=== PATIENT | female | born 1995 | race Two or more races ===

== ENCOUNTER 2018-03-22 16:59 | Emergency (ER) | payer OTHER ==
[2018-03-22 17:09] VITALS: BP 117/62
[2018-03-22] MEDS ORDERED: ONDANSETRON 4 MG TAB.RAPDIS PO ONE (17:40)
--- NOTE | 2018-03-22 17:41 | ER Document Report ---
ED Medical Screen (RME) - General Chief Complaint: Vag Bleeding, +preg <12wks Stated Complaint: CRAMPS RELATED TO Time Seen by Provider: 03/22/18 17:39 Notes: 22 years old female first possibly about 6 weeks presents today with diffuse abdominal pain. Going on for the last 2-3 days. She has been having nausea for the last 2 weeks. Denies any vaginal bleeding, but has whitish discharges. Denies any fever chills or other constitutional symptoms On examination-abdomen is diffusely tender, positive bowel sounds TRAVEL OUTSIDE OF THE [place] IN LAST 30 DAYS: No - Related Data Allergies/Adverse Reactions: No Known Allergies Allergy (Unverified 03/22/18 17:04) Past Medical History Neurological Medical History: Reports: Hx Seizures Renal/ Medical History: Denies: Hx Peritoneal Dialysis Past Surgical History: Reports: Hx Cholecystectomy Physical Exam - Vital signs Vitals: Temp Pulse Resp BP Pulse Ox 98.7 F 64 18 117/62 98 03/22/18 17:07 03/22/18 17:07 03/22/18 17:07 03/22/18 17:07 03/22/18 17:07 Course - Vital Signs Vital signs: Temp Pulse Resp BP Pulse Ox 98.7 F 64 18 117/62 98 03/22/18 17:07 03/22/18 17:07 03/22/18 17:07 03/22/18 17:07 03/22/18 17:07
--- NOTE | 2018-03-22 18:31 | RADIOLOGY REPORT (SQ) ---
EXAM DESCRIPTION: U/S 1TRIMESTER/1GEST W/DOPPLER COMPLETED DATE/TIME: 03/22/2018 6:14 pm REASON FOR STUDY: and abdominal pain COMPARISON: None. TECHNIQUE: Transvaginal static and realtime grayscale images acquired of the pelvis. Additional frannie cted spectral and color Doppler images recorded. All images stored on PACs. bHCG: Pending. CLINICAL DATES: LMP 01/14/2018. 9 weeks 4 days. LIMITATIONS: None. FINDINGS: FETUS: Single Living intrauterine . ULTRASOUND EGA: 8 weeks 5 days. ULTRASOUND CRIS: 10/27/2018 EFW: Not applicable less than 20 weeks. CRL: 2.1 cm. FHR: 178 beats per minute. SURVEY: Too early to assess. AMNIOTIC FLUID: Adequate amount. PLACENTA: Not yet developed due to early gestation. SUBCHORIONIC BLEED: No SIZE OF BLEED: Not applicable. UTERUS: No masses or anomalies. 8.7 x 6.9 x 7.4 cm. CERVICAL LENGTH: 2.2 cm. Closed. RIGHT ADNEXA: Ovary not seen. No adnexal free fluid. No adnexal masses. LEFT ADNEXA: Ovary not seen. No adnexal free fluid. No adnexal masses. FREE FLUID: None. OTHER: No other significant finding. IMPRESSION: LIVING INTRAUTERINE . EGA 8 weeks 5 days. Trimester of : First - 0 to 13 weeks. TECHNICAL DOCUMENTATION: JOB ID: [id number] [employer]- All Rights Reserved rev Reading location - IP/workstation name: [email or web address]
[2018-03-22 18:33] LABS: ABSOLUTE EOSINOPHILS # (AUTO) 0.1 10^3/uL (0.0-0.6); ABSOLUTE MONOCYTES (AUTO) 0.5 10^3/uL (0.1-1.4); ABSOLUTE NEUT (AUTO) 5.6 10^3/uL (1.7-8.2); BASOPHILS % (AUTO) 0.4 % (0-2); EOSINOPHILS % (AUTO) 1.6 % (0-6); HEMATOCRIT 37.4 % (36.0-47.0); HEMOGLOBIN 13.1 g/dL (12.0-15.5); LYMPHOCYTES % (AUTO) 31.9 % (13-45); MEAN CORPUSCULAR HEMOGLOBIN 29.9 pg (27.0-33.4); MEAN CORPUSCULAR VOLUME 85 fl (80-97); MONOCYTES % (AUTO) 5.9 % (3-13); PLATELET COUNT 250 10^3/uL (150-450); RED BLOOD COUNT 4.38 10^6/uL (3.72-5.28); RED CELL DISTRIBUTION WIDTH 14.4 % (11.5-14.0); SEGMENTED NEUTROPHILS % (AUTO) 60.2 % (42-78); TOTAL CELLS COUNTED % (AUTO) 100 %; WHITE BLOOD COUNT 9.3 10^3/uL (4.0-10.5)
[2018-03-22] MEDS ORDERED: ACETAMINOPHEN 325 MG TABLET PO ONE (18:38)
--- NOTE | 2018-03-22 18:40 | ER Document Report ---
ED GI/ - General Chief Complaint: Vag Bleeding, +preg <12wks Stated Complaint: CRAMPS RELATED TO Time Seen by Provider: 03/22/18 17:39 Mode of Arrival: Ambulatory Information source: Patient Notes: Patient presents complaining of intermittent abdominal cramping off and on for the past 3 weeks. Patient does report occasional nausea over the past 2 weeks. Patient presents today complaining of vaginal discharge. Patient is currently 6 weeks . Patient has not had any care with this . Patient denies any urinary symptoms or vaginal bleeding. TRAVEL OUTSIDE OF THE [place] IN LAST 30 DAYS: No - HPI Patient complains to provider of: Abdominal pain, , Vaginal discharge, Vomiting. No: Diarrhea, Dysuria Onset: Other - 3 weeks Timing/Duration: Waxing and waning Pain Level: 2 Context: Location: Other Vaginal bleeding (Compared to normal period): None Menstrual period history: Sexual history: Active Associated symptoms: Nausea, Vaginal discharge, Vomiting. denies: Dysuria, Fever, Loss of appetite, Urinary hesitancy, Urinary frequency, Urinary urgency Exacerbated by: Denies Relieved by: Denies Similar symptoms previously: No Recently seen / treated by doctor: No - Related Data Allergies/Adverse Reactions: No Known Allergies Allergy (Unverified 03/22/18 17:04) Past Medical History - General Information source: Patient - Social History Smoking Status: Never Smoker Frequency of alcohol use: None Drug Abuse: None Occupation: None Lives with: Family Family History: Reviewed & Not Pertinent Patient has suicidal ideation: No Patient has homicidal ideation: No Neurological Medical History: Reports: Hx Seizures Renal/ Medical History: Denies: Hx Peritoneal Dialysis Past Surgical History: Reports: Hx Cholecystectomy Review of Systems - Review of Systems Constitutional: No symptoms reported. denies: Fever, Recent illness EENT: No symptoms reported Cardiovascular: No symptoms reported. denies: Chest pain Respiratory: No symptoms reported. denies: Cough, Short of breath Gastrointestinal: Abdominal pain, Nausea, Vomiting. denies: Diarrhea, Constipation Genitourinary: No symptoms reported. denies: Flank pain Female Genitourinary: , Vaginal discharge. denies: Vaginal bleeding Musculoskeletal: No symptoms reported. denies: Back pain Skin: No symptoms reported Hematologic/Lymphatic: No symptoms reported Neurological/Psychological: No symptoms reported Physical Exam - Vital signs Vitals: Temp Pulse Resp BP Pulse Ox 98.7 F 64 18 117/62 98 03/22/18 17:07 03/22/18 17:07 03/22/18 17:07 03/22/18 17:07 03/22/18 17:07 - General General appearance: Appears well, Alert In distress: None - HEENT Head: Normocephalic, Atraumatic Eyes: Normal Conjunctiva: Normal Mouth/Lips: Normal Neck: Normal, Supple. No: Lymphadenopathy - Respiratory Respiratory status: No respiratory distress Chest status: Nontender Breath sounds: Normal. No: Rales, Rhonchi, Stridor, Wheezing Chest palpation: Normal - Cardiovascular Rhythm: Regular Heart sounds: S1 appreciated, S2 appreciated Murmur: No - Abdominal Inspection: Morbidly Obese Distension: No distension Bowel sounds: Normal Tenderness: Tender - diffuse Organomegaly: No organomegaly - Genitourinary External exam: Normal Speculum exam: Cervix closed, Vaginal discharge Vaginal bleeding: None Bimanuel exam: Normal - Back Back: Normal, Nontender. No: CVA tenderness - Extremities General upper extremity: Normal inspection, Normal ROM General lower extremity: Normal inspection, Normal ROM - Neurological Neuro grossly intact: Yes Cognition: Normal Amber Coma Scale Eye Opening: Spontaneous [place] Coma Scale Verbal: Oriented Amber Coma Scale Motor: Obeys Commands Amber Coma Scale Total: 15 - Psychological Associated symptoms: Normal affect, Normal mood - Skin Skin Temperature: Warm Skin Moisture: Dry Skin Color: Normal Course - Re-evaluation Re-evalutation: 03/22/18 21:51 Patient's abdomen soft, no guarding. Patient nontoxic in appearance patient advised of diagnostic test results. Patient encouraged to follow-up with a OB/ TUMBLER MACHINE OPERATOR HELPER to establish care. Patient will be treated for bacterial vaginosis as well as UTI and urine culture will be performed. Patient presents with abdominal pain without signs of peritonitis or other life-threatening or serious etiology. Patient appears stable for discharge and has been instructed to return immediately if the symptoms worsen in any way for reevaluation. The patient has been instructed to return if the symptoms worsen or change in any way. - Vital Signs Vital signs: Temp Pulse Resp BP Pulse Ox 98.7 F 64 18 117/62 98 03/22/18 17:07 03/22/18 17:07 03/22/18 17:07 03/22/18 17:07 03/22/18 17:07 - Laboratory Result Diagrams: 03/22/18 18:18 03/22/18 18:18 Laboratory results interpreted by me: 03/22/18 03/22/18 03/22/18 18:18 18:18 20:20 RDW 14.4 H Chloride 108 H Carbon Dioxide 20 L Urine Ketones 20 H Ur Leukocyte Esterase LARGE H Urine Ascorbic Acid 40 H 03/22/18 23:19 Labs- Entire Visit 03/22/18 03/22/18 03/22/18 18:18 18:18 18:40 WBC 9.3 RBC 4.38 Hgb 13.1 Hct 37.4 MCV 85 MCH 29.9 MCHC 35.0 RDW 14.4 H Plt Count 250 Seg Neutrophils % 60.2 Lymphocytes % 31.9 Monocytes % 5.9 Eosinophils % 1.6 Basophils % 0.4 Absolute Neutrophils 5.6 Absolute Lymphocytes 3.0 Absolute Monocytes 0.5 Absolute Eosinophils 0.1 Absolute Basophils 0.0 Sodium 139.3 Potassium 4.1 Chloride 108 H Carbon Dioxide 20 L Anion Gap 11 BUN 9 Creatinine 0.69 Est GFR ( Amer) > 60 Est GFR (Non-Af Amer) > 60 Glucose 99 Calcium 9.6 Total Bilirubin 0.4 Direct Bilirubin 0.2 Neonat Total Bilirubin Not Reportable Neonat Direct Bilirubin Not Reportable Neonat Indirect Bili Not Reportable AST 33 ALT 45 Alkaline Phosphatase 80 Total Protein 7.4 Albumin 4.3 Lipase 34.6 Urine Color Urine Appearance Urine pH Ur Specific [place] Urine Protein Urine Glucose (UA) Urine Ketones Urine Blood Urine Nitrite Urine Bilirubin Urine Urobilinogen Ur Leukocyte Esterase Urine WBC (Auto) Urine RBC (Auto) Urine Bacteria (Auto) Squamous Epi Cells Auto Urine Mucus (Auto) Urine Ascorbic Acid Epi Cells (Wet Prep) 3+ EPITHELIALS SEEN Trichomonas (Wet Prep) NO TRICHOMONAS SEEN Vaginal WBC 1+ WBCS SEEN Vaginal Yeast NO YEAST SEEN Chlamydia DNA (PCR) N.gonorrhoeae DNA (PCR) 03/22/18 03/22/18 18:40 20:20 WBC RBC Hgb Hct MCV MCH MCHC RDW Plt Count Seg Neutrophils % Lymphocytes % Monocytes % Eosinophils % Basophils % Absolute Neutrophils Absolute Lymphocytes Absolute Monocytes Absolute Eosinophils Absolute Basophils Sodium Potassium Chloride Carbon Dioxide Anion Gap BUN Creatinine Est GFR ( Amer) Est GFR (Non-Af Amer) Glucose Calcium Total Bilirubin Direct Bilirubin Neonat Total Bilirubin Neonat Direct Bilirubin Neonat Indirect Bili AST ALT Alkaline Phosphatase Total Protein Albumin Lipase Urine Color YELLOW Urine Appearance CLOUDY Urine pH 5.0 Ur Specific [place] 1.021 Urine Protein NEGATIVE Urine Glucose (UA) NEGATIVE Urine Ketones 20 H Urine Blood NEGATIVE Urine Nitrite NEGATIVE Urine Bilirubin NEGATIVE Urine Urobilinogen NEGATIVE Ur Leukocyte Esterase LARGE H Urine WBC (Auto) 33 Urine RBC (Auto) 2 Urine Bacteria (Auto) 1+ Squamous Epi Cells Auto 5 Urine Mucus (Auto) MOD Urine Ascorbic Acid 40 H Epi Cells (Wet Prep) Trichomonas (Wet Prep) Vaginal WBC Vaginal Yeast Chlamydia DNA (PCR) NOT DETECTED N.gonorrhoeae DNA (PCR) NOT DETECTED - Diagnostic Test Radiology reviewed: Reports reviewed Discharge - Discharge Clinical Impression: Bacterial vaginosis, Intrauterine UTI (urinary tract infection) Qualifiers: Urinary tract infection type: site unspecified Hematuria presence: without hematuria Qualified Code(s): N39.0 - Urinary tract infection, site not specified Condition: Stable Disposition: HOME, SELF-CARE Instructions: Abdominal Pain ([facility]), Cephalexin ([facility]), Metronidazole ([facility]), Urinary Tract Infection ([facility]), Vaginosis, Bacterial ([facility]) Additional Instructions: Return immediately for any new or worsening symptoms Followup with your primary care provider, call tomorrow to make a followup appointment Follow-up with a hunting and fishing guide to establish care Urine culture is pending, we will call if you need any different treatment Prescriptions: Cephalexin Monohydrate [Keflex 500 mg Capsule] 500 mg PO Q6H 5 Days capsule Metronidazole [Flagyl 500 mg Tablet] 500 mg PO BID #14 tablet [facility] [Provider [facility] - 03/25/18
[2018-03-22 18:53] LABS: EPITHELIALS (WET MOUNT) 3+ EPITHELIALS SEEN; T.VAGINALIS (WET MOUNT) NO TRICHOMONAS SEEN; WBCS (WET MOUNT) 1+ WBCS SEEN; YEAST (WET MOUNT) NO YEAST SEEN
[2018-03-22 18:57] LABS: ALANINE AMINOTRANSFERASE 45 U/L (9-52); ALBUMIN 4.3 g/dL (3.5-5.0); ALKALINE PHOSPHATASE 80 U/L (38-126); ANION GAP 11 (5-19); ASPARTATE AMINO TRANSFERASE 33 U/L (14-36); BILIRUBIN,DIRECT 0.2 mg/dL (0.0-0.4); BILIRUBIN,TOTAL 0.4 mg/dL (0.2-1.3); BLOOD UREA NITROGEN 9 mg/dL (7-20); CALCIUM 9.6 mg/dL (8.4-10.2); CARBON DIOXIDE 20 mmol/L (22-30); CHLORIDE 108 mmol/L (98-107); GLUCOSE 99 mg/dL (75-110); LIPASE 34.6 U/L (23-300); POTASSIUM 4.1 mmol/L (3.6-5.0); SODIUM 139.3 mmol/L (137-145); TOTAL PROTEIN 7.4 g/dL (6.3-8.2)
[2018-03-22 20:19] LABS: CHLAM PCR NOT DETECTED (NOT DETECT); GON PCR NOT DETECTED (NOT DETECT)
[2018-03-22 20:45] LABS: APPEARANCE,URINE CLOUDY; BILIRUBIN,URINE NEGATIVE (NEGATIVE); COLOR,URINE YELLOW; GLUCOSE, URINE NEGATIVE (NEGATIVE); KETONES,URINE 20 mg/dL (NEGATIVE); LEUKOCYTE ESTERASE,URINE LARGE (NEGATIVE); NITRITE,URINE NEGATIVE (NEGATIVE); PROTEIN,URINE NEGATIVE (NEGATIVE); URINE SPECIFIC GRAVITY 1.021; UROBILINOGEN,URINE NEGATIVE mg/dL (<2.0)
[2018-03-22] MEDS ORDERED: METRONIDAZOLE 500 MG TABLET PO ONE (21:48)
[2018-03-22] MEDS ORDERED: CEPHALEXIN 500 MG CAPSULE PO ONE (21:48)
== END 2018-03-22 22:34 | disposition home or self-care (01) ==
LOC: ER 16:59
DX: O23.591 Infection of other part of genital tract in pregnancy, first trimester (principal); B96.89 Other specified bacterial agents as the cause of diseases classified elsewhere; O23.41 Unspecified infection of urinary tract in pregnancy, first trimester; O21.9 Vomiting of pregnancy, unspecified; O26.891 Other specified pregnancy related conditions, first trimester; R10.9 Unspecified abdominal pain; Z3A.01 Less than 8 weeks gestation of pregnancy
CPT/HCPCS: 99284; 36415; 87086; 87210; 83690; 85025; 80053; 81001; 87491; 87591; 76801; 93976; S0119

== ENCOUNTER 2018-03-25 00:32 | Emergency (ER) | payer OTHER ==
[2018-03-25] MEDS ORDERED: ACETAMINOPHEN 325 MG TABLET PO ONE (01:21)
[2018-03-25] MEDS ORDERED: METOCLOPRAMIDE HCL 10 MG TABLET PO ONE (01:29)
--- NOTE | 2018-03-25 01:35 | ER Document Report ---
ED Seizure - General Chief Complaint: Probable Seizure Stated Complaint: POSSIBLE SEIZURE Time Seen by Provider: 03/25/18 01:20 Mode of Arrival: Wheelchair Information source: Patient, Relative Notes: Patient is a 22-year-old female comes emergency room complaining of having a seizure this evening. Patient states that she has type of aura that comes about her when she has a seizure during the day when she notices her left side feels really rundown and fatigued she knows she did have a seizure sometime in the next 24 hours. She got this feeling this morning and she had gone to bed tonight and states that he witnessed her going into the seizure that lasted for a few minutes not real prominent but a tonic-clonic presentation. She takes Topamax for her history of seizures and she did take her dose today. Patient also states that she was here 2 days ago diagnosed with a urinary tract infection given antibiotics which she is not sure of what the name was and was told by pharmacist that she should not take it if she was under 12 weeks and she is only 8 weeks according to her. She was going to come back to ask about another antibiotic. Patient also states that she has a history of migraines and after the seizure she currently has a migraine that is centered in the forehead. She denies any other medical problems at this time and she does not smoke drink or do drugs. TRAVEL OUTSIDE OF THE [place] IN LAST 30 DAYS: No - HPI Patient complains to provider of: History of seizures Number of episodes: 1 Quality of pain: Pressure, Throbbing Severity: Moderate Pain Level: 3 Continued on arrival to ED: No Can details of seizure be obtained/verified: Yes Episode witnessed (by whom): Yes - By Current seizure medications: Other - Topamax Preceding symptoms/context: Recent illness/fever. denies: Recent alcohol intake , Recent drug use, Sleep deprivation, Missed dose of meds, Somnolence History of: Migraines Character of seizure: Complete loss/conscious, Generalized shaking. No: Incontinent stool, Incontinent bladder, Stopped breathing Post-ictal symptoms: None Injuries: None - Related Data Allergies/Adverse Reactions: No Known Allergies Allergy (Unverified 03/22/18 17:04) Past Medical History - General Information source: Patient, Relative - Social History Smoking Status: Never Smoker Cigarette use (# per day): No Chew tobacco use (# tins/day): No Smoking Education Provided: No Frequency of alcohol use: None Drug Abuse: None Family History: Reviewed & Not Pertinent Neurological Medical History: Reports: Hx Seizures Renal/ Medical History: Denies: Hx Peritoneal Dialysis Past Surgical History: Reports: Hx Cholecystectomy Review of Systems - Review of Systems Constitutional: No symptoms reported EENT: No symptoms reported Cardiovascular: No symptoms reported Respiratory: No symptoms reported Gastrointestinal: No symptoms reported Genitourinary: No symptoms reported Female Genitourinary: No symptoms reported Musculoskeletal: No symptoms reported Skin: No symptoms reported Hematologic/Lymphatic: No symptoms reported Neurological/Psychological: Seizure, Lost consciousness -: Yes All other systems reviewed and negative Physical Exam - Vital signs Vitals: Temp Pulse Resp BP Pulse Ox 99.2 F 115 H 18 102/68 98 03/25/18 00:38 03/25/18 00:38 03/25/18 00:38 03/25/18 00:38 03/25/18 00:38 Interpretation: Tachycardic - General General appearance: Alert In distress: None - HEENT Head: Normocephalic, Atraumatic Eyes: Normal - Respiratory Respiratory status: No respiratory distress Chest status: Nontender Breath sounds: Normal Chest palpation: Normal - Cardiovascular Rhythm: Tachycardia Murmur: No - Neurological Neuro grossly intact: Yes Cognition: Normal Orientation: AAOx4 Amber Coma Scale Eye Opening: Spontaneous Amber Coma Scale Verbal: Oriented Amber Coma Scale Motor: Obeys Commands [place] Coma Scale Total: 15 Speech: Normal Course - Vital Signs Vital signs: Temp Pulse Resp BP Pulse Ox 99.2 F 115 H 18 102/68 98 03/25/18 00:38 03/25/18 00:38 03/25/18 00:38 03/25/18 00:38 03/25/18 00:38 Discharge - Discharge Clinical Impression: Seizure
[2018-03-25] MEDS ORDERED: LORAZEPAM 1 MG TABLET PO ONE (02:16)
--- NOTE | 2018-03-25 02:19 | ER Document Report ---
ED Seizure - General Chief Complaint: Probable Seizure Stated Complaint: POSSIBLE SEIZURE Time Seen by Provider: 03/25/18 01:20 Mode of Arrival: Wheelchair Information source: Patient - Related Data Allergies/Adverse Reactions: No Known Allergies Allergy (Unverified 03/22/18 17:04) Past Medical History - General Information source: Patient, Relative - Social History Smoking Status: Never Smoker Cigarette use (# per day): No Chew tobacco use (# tins/day): No Frequency of alcohol use: None Drug Abuse: None Family History: Reviewed & Not Pertinent Patient has suicidal ideation: No Patient has homicidal ideation: No Neurological Medical History: Reports: Hx Migraine, Hx Seizures Renal/ Medical History: Denies: Hx Peritoneal Dialysis Past Surgical History: Reports: Hx Cholecystectomy Physical Exam - Vital signs Vitals: Temp Pulse Resp BP Pulse Ox 99.2 F 115 H 18 102/68 98 03/25/18 00:38 03/25/18 00:38 03/25/18 00:38 03/25/18 00:38 03/25/18 00:38 Course - Vital Signs Vital signs: Temp Pulse Resp BP Pulse Ox 99.2 F 115 H 18 102/68 98 03/25/18 00:38 03/25/18 00:38 03/25/18 00:38 03/25/18 00:38 03/25/18 00:38 Discharge - Discharge Clinical Impression: Seizure Condition: Stable Disposition: HOME, SELF-CARE Additional Instructions: Topamax is known to be harmful to the fetus and early . You should stop taking that medication now. Your urine culture from 2 days ago did not grow a urinary pathogen, so you can stop taking the cephalexin and metronidazole. Follow-up with your primary provider at [facility] to discuss alternative management of your seizure disorder. RETURN TO THE EMERGENCY ROOM IF ANY NEW OR WORSENING SYMPTOMS.
[2018-03-25 02:52] VITALS: BP 102/54
== END 2018-03-25 02:51 | disposition home or self-care (01) ==
LOC: ER 00:32
DX: R56.9 Unspecified convulsions (principal); Z90.49 Acquired absence of other specified parts of digestive tract
CPT/HCPCS: 99285

== ENCOUNTER 2018-03-30 01:11 | Emergency (ER) | payer OTHER ==
[2018-03-30] MEDS ORDERED: HALOPERIDOL LACTATE INJ 5 MG/1 ML VIAL IM ONE (01:22)
[2018-03-30] MEDS ORDERED: HALOPERIDOL LACTATE INJ 5 MG/1 ML VIAL ONE (01:23)
[2018-03-30] MEDS ORDERED: MIDAZOLAM 2 MG/2 ML INJ IM ONE (01:23)
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
[2018-03-30 04:01] VITALS: BP 117/58
== END 2018-03-30 03:10 | disposition home or self-care (01) ==
LOC: ER 01:11
DX: O99.341 Other mental disorders complicating pregnancy, first trimester (principal); F41.1 Generalized anxiety disorder; Z3A.09 9 weeks gestation of pregnancy
CPT/HCPCS: 99283; 96372; J2250

== ENCOUNTER 2018-04-17 17:00 | Emergency (ER) | payer OTHER ==
[2018-04-17] MEDS ORDERED: LORAZEPAM INJ 2 MG/1 ML VIAL IV ONE (17:38)
[2018-04-17 17:42] LABS: ABSOLUTE EOSINOPHILS # (AUTO) 0.2 10^3/uL (0.0-0.6); ABSOLUTE MONOCYTES (AUTO) 1.1 10^3/uL (0.1-1.4); ABSOLUTE NEUT (AUTO) 8.5 10^3/uL (1.7-8.2); BASOPHILS % (AUTO) 0.3 % (0-2); EOSINOPHILS % (AUTO) 1.1 % (0-6); HEMATOCRIT 40.2 % (36.0-47.0); HEMOGLOBIN 13.5 g/dL (12.0-15.5); LYMPHOCYTES % (AUTO) 41.6 % (13-45); MEAN CORPUSCULAR HEMOGLOBIN 29.5 pg (27.0-33.4); MEAN CORPUSCULAR HGB CONC 33.5 g/dL (32.0-36.0); MEAN CORPUSCULAR VOLUME 88 fl (80-97); MONOCYTES % (AUTO) 6.8 % (3-13); PLATELET COUNT 303 10^3/uL (150-450); RED BLOOD COUNT 4.57 10^6/uL (3.72-5.28); RED CELL DISTRIBUTION WIDTH 14.3 % (11.5-14.0); SEGMENTED NEUTROPHILS % (AUTO) 50.2 % (42-78); TOTAL CELLS COUNTED % (AUTO) 100 %; WHITE BLOOD COUNT 16.9 10^3/uL (4.0-10.5)
[2018-04-17] MEDS ORDERED: TOPIRAMATE 100 MG TABLET PO ONE (17:59)
[2018-04-17 18:01] LABS: ALANINE AMINOTRANSFERASE 31 U/L (9-52); ALBUMIN 4.5 g/dL (3.5-5.0); ALKALINE PHOSPHATASE 87 U/L (38-126); ASPARTATE AMINO TRANSFERASE 32 U/L (14-36); BILIRUBIN,DIRECT 0.2 mg/dL (0.0-0.4); BILIRUBIN,TOTAL 0.3 mg/dL (0.2-1.3); BLOOD UREA NITROGEN 5 mg/dL (7-20); CALCIUM 10.5 mg/dL (8.4-10.2); GLUCOSE 110 mg/dL (75-110); POTASSIUM 4.9 mmol/L (3.6-5.0); TOTAL PROTEIN 7.8 g/dL (6.3-8.2)
[2018-04-17 18:10] LABS: CARBON DIOXIDE 13 mmol/L (22-30); CHLORIDE 110 mmol/L (98-107); SODIUM 146.9 mmol/L (137-145)
[2018-04-17 18:11] LABS: ANION GAP 24 (5-19)
[2018-04-17] MEDS ORDERED: ACETAMINOPHEN 325 MG TABLET PO ONE (18:13)
--- NOTE | 2018-04-17 18:56 | RADIOLOGY REPORT (SQ) ---
EXAM DESCRIPTION: CHEST SINGLE VIEW COMPLETED DATE/TIME: 04/17/2018 6:36 pm REASON FOR STUDY: Seizure, postictal, portable chest x-ray COMPARISON: None. EXAM PARAMETERS: NUMBER OF VIEWS: One view. TECHNIQUE: Single frontal radiographic view of the chest acquired. RADIATION DOSE: NA LIMITATIONS: None. FINDINGS: LUNGS AND PLEURA: Low lung volumes. No infiltrate or effusion. No mass. MEDIASTINUM AND HILAR STRUCTURES: No masses. Contour normal. HEART AND VASCULAR STRUCTURES: Heart normal in size. Normal vasculature. BONES: No acute findings. HARDWARE: None in the chest. OTHER: No other significant finding. IMPRESSION: NO ACUTE RADIOGRAPHIC FINDING IN THE CHEST. TECHNICAL DOCUMENTATION: JOB ID: [id number] [employer]- All Rights Reserved Reading location - IP/workstation name: [email or web address]
[2018-04-17] MEDS ORDERED: OXYCODONE-ACETAMINOPHEN 5-325 MG TABLET PO ONE (19:24)
--- NOTE | 2018-04-17 19:27 | ER Document Report ---
ED Seizure - General Chief Complaint: Probable Seizure Stated Complaint: HEAD PAIN Time Seen by Provider: 04/17/18 17:35 Notes: Patient brought in actively seizing. Patient has a history of seizure disorder for many years, of unknown cause. She is currently being treated with clonazepam 0.5 mg 3 times a day and a long-acting, extended release Topamax at bedtime. said he found her on the floor after having had a seizure this afternoon. She was able to function and walk after that occurred. She then had a second seizure for which he brought her to the emergency department. Has not been sick in any way recently. She is 12 weeks . No problems with the yet. Has been getting care and is on vitamins. Denies any vomiting or diarrhea. No fevers. Did apparently bite her tongue and 1 of the seizures today. No cough or congestion or difficulty breathing or shortness of breath. Patient's only complaint is a headache, similar to when she has had before after a seizure. No evidence that the patient has hit her head or had any trauma to her head today. No swelling of the extremities. Later in her visit, after the patient awakened from her postictal state, we are to find out that the patient says that she did not take but 1 of her clonazepam' s today and has not taken her extended release Topamax today. It is prescribed to be taken at bedtime. - Related Data Allergies/Adverse Reactions: No Known Allergies Allergy (Verified 04/17/18 17:01) Past Medical History - Social History Smoking Status: Never Smoker Frequency of alcohol use: None Drug Abuse: None Family History: Reviewed & Not Pertinent Patient has suicidal ideation: No Patient has homicidal ideation: No Neurological Medical History: Reports: Hx Migraine, Hx Seizures Psychiatric Medical History: Reports: Other - History of panic attacks Past Surgical History: Reports: Hx Cholecystectomy Review of Systems - Review of Systems Notes: REVIEW OF SYSTEMS: CONSTITUTIONAL : Denies fever. EENT: Says she bit her tongue, on both sides. But denies eye, ear, nose or mouth or throat pain or other symptoms. CARDIOVASCULAR: Denies chest pain. RESPIRATORY: Denies cough, chest congestion, or shortness of breath. GASTROINTESTINAL: Denies abdominal pain or nausea, vomiting, or diarrhea. GENITOURINARY: Denies difficulty or painful urinating, urinary frequency, blood in urine. MUSCULOSKELETAL: Denies back or neck pain. Denies joint pain or swelling. SKIN: Denies rash or skin lesions. NEUROLOGICAL: Complains of headache. Denies sensory loss or motor deficits. ALL OTHER SYSTEMS REVIEWED AND NEGATIVE. Physical Exam - Vital signs Vitals: Temp Pulse Resp BP Pulse Ox 98.5 F 99 20 116/55 L 97 04/17/18 17:04 04/17/18 17:04 04/17/18 17:04 04/17/18 17:04 04/17/18 17:04 Interpretation: Normal Notes: PHYSICAL EXAMINATION: GENERAL: Actively seizing when brought to the examining room in trauma 2. Completed her seizure and became postictal as we were getting her up on the stretcher. Unresponsive otherwise. Some blood coming from her mouth. No apparent incontinence. HEAD: Atraumatic, normocephalic. EYES: Pupils equal round and reactive to light, extraocular movements intact. ENT: oropharynx: Small macerated chewing injury to the lateral aspects of both sides of her tongue. No significant swelling in the middle of the tongue. No impingement upon the airway or ability to swallow. Moist mucous membranes. NECK: Normal range of motion, supple. LUNGS: Breath sounds clear and equal bilaterally. HEART: Regular rate and rhythm without murmurs. ABDOMEN: Soft, nontender. No guarding or rebound. No masses. BACK: No tenderness throughout entire back. EXTREMITIES: Normal range of motion without pain. NEUROLOGICAL: After she awakened, she exhibited normal speech, normal gait. Normal sensory, motor, and reflex exams. Awake, alert, and oriented x3. Complains of generalized global headache. SKIN: Warm, dry, no rashes. Course - Re-evaluation Re-evalutation: 04/17/18 19:42 We were able to learn from the patient that she has only taken 1 of her clonazepam's today and she is supposed to be taking 3 a day. Additionally, patient is on an extended release Topamax 100 mg that she supposed to take 1 at bedtime. She has not taken any today thus far. Do not know if she took any yesterday. She is trying to conserve medications because her pharmacy cannot get that medication for her without prior approval from the patient's physician. 04/17/18 19:43 Patient remained seizure free throughout the rest of her stay. She continued to complain of headache I gave her 975 mg of acetaminophen p.o. But she continued to complain of the headache, I gave her 1 Percocet at her time of discharge. Advised the patient to take her Topamax extended release pill when she gets home tonight also to take her clonazepam, third pill of the day, later tonight. - Vital Signs Vital signs: Temp Pulse Resp BP Pulse Ox 98.5 F 99 20 112/75 98 04/17/18 17:04 04/17/18 17:04 04/17/18 19:02 04/17/18 19:02 04/17/18 19:02 - Laboratory Result Diagrams: 04/17/18 17:23 04/17/18 17:23 Laboratory results interpreted by me: 04/17/18 04/17/18 17:23 17:23 WBC 16.9 H RDW 14.3 H Absolute Neutrophils 8.5 H Absolute Lymphocytes 7.0 H Sodium 146.9 H Chloride 110 H Carbon Dioxide 13 L Anion Gap 24 H BUN 5 L Calcium 10.5 H Discharge - Discharge Clinical Impression: Seizure, , History of seizures Condition: Stable Disposition: HOME, SELF-CARE Additional Instructions: Seizure, Known Epileptic You have had a seizure. Seizures may "break through" in an epileptic due to stress of infection or injury, a change in blood chemistry, or drug and alcohol use. Another common cause is failure to take medication as prescribed. Your doctor has evaluated your situation for the likely cause of this seizure. It is important that you follow his advice concerning any medication changes and follow-up care. Further testing of anti-seizure medication levels in your blood may be necessary. 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 This seizure must be reported to the regional [employer] driver 's license bureau. Call the doctor or return if seizures recur, or if new or unusual symptoms arise -- such as severe headache, confusion, excessive sleepiness, local weakness or numbness, neck stiffness, or fever. Take both of your medications as prescribed. Do not miss a single dose. Follow-up with your neurologist tomorrow morning. Return if you have new or different or worsening symptoms or you have another seizure. FOLLOW-UP CARE: If you have been referred to a physician for follow-up care, call the physician s office for an appointment as you were instructed or within the next two days. If you experience worsening or a significant change in your symptoms, notify the physician immediately or return to the Emergency Department at any time for re-evaluation. Referrals: HAYDEN KHAN FNP-C [Primary Care Provider] - Follow up as needed
[2018-04-17 20:26] VITALS: BP 115/67
--- NOTE | 2018-04-18 08:58 | EKG REPORT ---
SEVERITY:- BORDERLINE ECG - SINUS RHYTHM BORDERLINE T ABNORMALITIES, INFERIOR LEADS : Confirmed by: Donnie Dubose 18-Apr-2018 08:57:11
== END 2018-04-17 21:25 | disposition home or self-care (01) ==
LOC: ER 17:00
DX: O99.351 Diseases of the nervous system complicating pregnancy, first trimester (principal); G40.909 Epilepsy, unspecified, not intractable, without status epilepticus; T42.4X6A Underdosing of benzodiazepines, initial encounter; Z91.128 Patient's intentional underdosing of medication regimen for other reason; Z91.14 Patient's other noncompliance with medication regimen; Z79.899 Other long term (current) drug therapy; O9A.211 Injury, poisoning and certain other consequences of external causes complicating pregnancy, first trimester; S01.552A Open bite of oral cavity, initial encounter; W50.3XXA Accidental bite by another person, initial encounter; O26.891 Other specified pregnancy related conditions, first trimester; R51 Headache; Z3A.12 12 weeks gestation of pregnancy
CPT/HCPCS: 93005; 99284; 96374; 36415; 83735; 85025; 80053; 71045; 93010; J2060; J3490

== ENCOUNTER 2018-08-22 01:53 | Emergency (ER) | payer MEDICAID, OTHER ==
[2018-08-22] MEDS ORDERED: METOCLOPRAMIDE HCL INJ/PF 10 MG/2 ML SDV IV ONE (02:23)
[2018-08-22] MEDS ORDERED: DIPHENHYDRAMINE HCL 50 MG/ML VIAL IV ONE (02:23)
[2018-08-22] MEDS ORDERED: NORMAL SALINE 1000 ML 1,000 ML IV ONE (02:23)
[2018-08-22] MEDS ORDERED: KETOROLAC TROMETHAMINE INJ/PF 30 MG/1 ML SDV IV ONE (02:24)
--- NOTE | 2018-08-22 02:27 | ER Document Report ---
ED General - General Chief Complaint: Probable Seizure Stated Complaint: HEADACHE Time Seen by Provider: 08/22/18 02:21 Primary Care Provider: DARIUS RENE MD [NO LOCAL MD] - Follow up as needed (This is the number for the neurologist in the area) HAYDEN KHAN FNP-C [NO LOCAL MD] - Follow up in 3-5 days Mode of Arrival: Ambulatory Information source: Patient Notes: This is a 23-year-old female with a history of migraine headaches, seizures versus pseudoseizures, panic attacks who presents to the emergency room with migraine headaches. Patient is nervous she is going to have a seizure. She states she has had these symptoms in the past. She currently takes carbamazepine 300 mg twice daily. She does report having follow-up with a neurologist. She denies any fever, chills, vomiting or abdominal pain. She states she is currently menstruating. TRAVEL OUTSIDE OF THE [place] IN LAST 30 DAYS: No - HPI Onset: Just prior to arrival Onset/Duration: Gradual Quality of pain: Dull Severity: Moderate Pain Level: 3 Associated symptoms: denies: Chills, Fever, Shortness of breath Exacerbated by: Denies Relieved by: Denies Similar symptoms previously: Yes Recently seen / treated by doctor: Yes - Related Data Allergies/Adverse Reactions: No Known Allergies Allergy (Verified 04/17/18 17:01) Past Medical History - General Information source: Patient - Social History Smoking Status: Never Smoker Cigarette use (# per day): No Chew tobacco use (# tins/day): No Frequency of alcohol use: None Drug Abuse: None Lives with: Spouse/Significant other Family History: Reviewed & Not Pertinent Patient has suicidal ideation: No Patient has homicidal ideation: No - Past Medical History Cardiac Medical History: Reports: None Pulmonary Medical History: Reports: None EENT Medical History: Reports: None Neurological Medical History: Reports: Hx Migraine, Hx Seizures Endocrine Medical History: Reports: None Renal/ Medical History: Denies: Hx Peritoneal Dialysis Malignancy Medical History: Reports: None GI Medical History: Reports: None Musculoskeletal Medical History: Reports None Skin Medical History: Reports None Psychiatric Medical History: Reports: Hx Anxiety Traumatic Medical History: Reports: None Infectious Medical History: Reports: None Past Surgical History: Reports: Hx Cholecystectomy Review of Systems - Review of Systems Constitutional: denies: Chills, Fever EENT: No symptoms reported Cardiovascular: denies: Chest pain, Palpitations, Heart racing Respiratory: No symptoms reported Gastrointestinal: No symptoms reported Genitourinary: No symptoms reported Female Genitourinary: No symptoms reported Musculoskeletal: No symptoms reported Skin: No symptoms reported Hematologic/Lymphatic: No symptoms reported Neurological/Psychological: See HPI Physical Exam - Vital signs Vitals: Pulse Ox 98 08/22/18 02:07 Notes: Physical exam: GENERAL: Patient is alert and oriented and answering questions. She does complain of a headache at this time. She does appear very anxious. HEAD: Atraumatic, normocephalic. EYES: Pupils equal round and reactive to light, extraocular movements intact, sclera anicteric, conjunctiva are normal. ENT: TMs normal, nares patent, oropharynx clear without exudates. Moist mucous membranes. NECK: Normal range of motion, supple without obvious mass or JVD. LUNGS: Breath sounds clear to auscultation bilaterally and equal. No wheezes rales or rhonchi. HEART: Regular rate and rhythm without murmurs, rubs or gallops. ABDOMEN: Soft, normoactive bowel sounds. No tenderness to palpation. No guarding, no rebound. No masses appreciated. EXTREMITIES: Normal range of motion, no pitting or edema. No clubbing or cyanosis. NEUROLOGICAL: Does complain of a headache. Cranial nerves II through XII grossly intact. Her neck is supple. Normal speech, moving all extremities. No focal weakness. PSYCH: Normal mood, normal affect. SKIN: Warm, Dry, normal turgor, no rashes or lesions noted. Course - Vital Signs Vital signs: Temp Pulse Resp BP Pulse Ox 98 F 58 L 20 117/46 L 99 08/22/18 02:08 08/22/18 02:08 08/22/18 03:00 08/22/18 03:01 08/22/18 03:01 - Laboratory Result Diagrams: 08/22/18 02:34 08/22/18 03:09 Laboratory results interpreted by me: 08/22/18 08/22/18 02:34 03:09 Hgb 11.1 L Hct 32.6 L Chloride 109 H Total Protein 6.1 L Albumin 3.4 L Discharge - Discharge Clinical Impression: Migraine headache Condition: Stable Disposition: HOME, SELF-CARE Additional Instructions: As we discussed your labs look good today. Your test was negative. I want you to take it easy for the next few days. I want you to continue taking your migraine/seizure medicine. I do want you to follow-up with a primary care doctor. I put the number for a neurologist on the chart for you to follow-up with his well. Return to the emergency room for worsening migraines, seizures or any concerns or getting worse. Prescriptions: Carbamazepine [Carbamazepine ER] 300 mg PO BID #60 cpmp.12hr Oxycodone HCl/Acetaminophen [Percocet 5-325 mg Tablet] 1 - 2 tab PO ASDIR PRN #7 tablet PRN Reason: Forms: Parent Work Note Referrals: HAYDEN KHAN FNP-C [NO LOCAL MD] - Follow up in 3-5 days DARIUS RENE MD [NO LOCAL MD] - Follow up as needed (This is the number for the neurologist in the area)
[2018-08-22 02:54] LABS: ABSOLUTE EOSINOPHILS # (AUTO) 0.2 10^3/uL (0.0-0.6); ABSOLUTE MONOCYTES (AUTO) 0.5 10^3/uL (0.1-1.4); ABSOLUTE NEUT (AUTO) 3.8 10^3/uL (1.7-8.2); BASOPHILS % (AUTO) 0.5 % (0-2); EOSINOPHILS % (AUTO) 2.1 % (0-6); HEMATOCRIT 32.6 % (36.0-47.0); HEMOGLOBIN 11.1 g/dL (12.0-15.5); LYMPHOCYTES % (AUTO) 40.1 % (13-45); MEAN CORPUSCULAR HEMOGLOBIN 28.1 pg (27.0-33.4); MEAN CORPUSCULAR VOLUME 83 fl (80-97); MONOCYTES % (AUTO) 6.6 % (3-13); PLATELET COUNT 258 10^3/uL (150-450); RED BLOOD COUNT 3.95 10^6/uL (3.72-5.28); RED CELL DISTRIBUTION WIDTH 13.8 % (11.5-14.0); SEGMENTED NEUTROPHILS % (AUTO) 50.7 % (42-78); TOTAL CELLS COUNTED % (AUTO) 100 %; WHITE BLOOD COUNT 7.5 10^3/uL (4.0-10.5)
[2018-08-22 03:34] LABS: ALANINE AMINOTRANSFERASE 21 U/L (9-52); ALBUMIN 3.4 g/dL (3.5-5.0); ALKALINE PHOSPHATASE 113 U/L (38-126); ANION GAP 7 (5-19); ASPARTATE AMINO TRANSFERASE 15 U/L (14-36); BILIRUBIN,DIRECT 0.2 mg/dL (0.0-0.4); BILIRUBIN,TOTAL 0.2 mg/dL (0.2-1.3); BLOOD UREA NITROGEN 9 mg/dL (7-20); CALCIUM 8.7 mg/dL (8.4-10.2); CARBON DIOXIDE 24 mmol/L (22-30); CHLORIDE 109 mmol/L (98-107); GLUCOSE 106 mg/dL (75-110); POTASSIUM 3.7 mmol/L (3.6-5.0); SODIUM 140.4 mmol/L (137-145); TOTAL PROTEIN 6.1 g/dL (6.3-8.2)
[2018-08-22] MEDS ORDERED: MAGNESIUM SULFATE/D5W 1 GM/100 ML RTUPB IV ONE (03:35)
[2018-08-22] MEDS ORDERED: OXYCODONE-ACETAMINOPHEN 5-325 MG TABLET PO ONE (04:10)
[2018-08-22 04:41] VITALS: BP 138/65
== END 2018-08-22 04:41 | disposition home or self-care (01) ==
LOC: ER 01:53
DX: G43.909 Migraine, unspecified, not intractable, without status migrainosus (principal); R51 Headache; Z79.899 Other long term (current) drug therapy
CPT/HCPCS: 99285; 96361; 96375; 96365; 36415; 84702; 85025; 80053; J1200; J1885; J2765; J3475; J7030

== ENCOUNTER 2018-11-18 19:48 | Emergency (ER) | payer OTHER ==
--- NOTE | 2018-11-18 22:02 | ER Document Report ---
ED Medical Screen (RME) - General Chief Complaint: Headache Stated Complaint: HEADACHE Time Seen by Provider: 11/18/18 22:00 Mode of Arrival: Ambulatory Information source: Patient Notes: 23-year-old female presented to ED for complaint of headache nausea vomiting or diarrhea. She states she always has a headache and usually takes migraine medicines but she and her are trying to get so her doctor told her not to take migraine medicine anymore. She states the nausea vomiting and diarrhea has been for 2 days. She states she has vomited once today and had 6 diarrhea stools. Patient denies any fevers or chills. She states she has been drinking on the weekend I have informed her not to drink on the weekend if she is trying to get . She states her last menstrual period began on October 11 and she has not had one in November. Blood work urine and stool have been ordered. Patient is alert oriented respirations regular and unlabored walks with a even steady gait and is nontoxic in appearance. I have greeted and performed a rapid initial assessment of this patient. A comprehensive ED assessment and evaluation of the patient, analysis of test results and completion of medical decision making process will be conducted by an additional ED providers. Dictation of this chart was performed using voice recognition software; therefore, there may be some unintended grammatical errors. TRAVEL OUTSIDE OF THE [place] IN LAST 30 DAYS: No - Related Data Allergies/Adverse Reactions: No Known Allergies Allergy (Verified 04/17/18 17:01) Past Medical History Neurological Medical History: Reports: Hx Migraine, Hx Seizures Renal/ Medical History: Denies: Hx Peritoneal Dialysis Psychiatric Medical History: Reports: Hx Anxiety Past Surgical History: Reports: Hx Cholecystectomy
[2018-11-19 00:02] LABS: APPEARANCE,URINE SLIGHTLY-CLOUDY; BILIRUBIN,URINE NEGATIVE (NEGATIVE); COLOR,URINE YELLOW; GLUCOSE, URINE NEGATIVE (NEGATIVE); KETONES,URINE NEGATIVE (NEGATIVE); LEUKOCYTE ESTERASE,URINE TRACE (NEGATIVE); NITRITE,URINE NEGATIVE (NEGATIVE); PROTEIN,URINE NEGATIVE (NEGATIVE); UROBILINOGEN,URINE NEGATIVE mg/dL (<2.0)
== END 2018-11-19 01:29 | disposition left against medical advice (07) ==
LOC: ER 19:48
DX: R51 Headache (principal); R11.2 Nausea with vomiting, unspecified; R19.7 Diarrhea, unspecified; Z86.69 Personal history of other diseases of the nervous system and sense organs; Z53.20 Procedure and treatment not carried out because of patient's decision for unspecified reasons; Z90.49 Acquired absence of other specified parts of digestive tract
CPT/HCPCS: 81001; 82272; 87045; 87086; 87205; 89055; 99281

== ENCOUNTER 2018-12-08 03:00 | Emergency (ER) | payer OTHER ==
[2018-12-08] MEDS ORDERED: ONDANSETRON HCL INJ/PF 4 MG/2 ML SDV IV ONE (08:10)
[2018-12-08] MEDS ORDERED: NORMAL SALINE 1000 ML 1,000 ML IV ONE (08:10)
[2018-12-08] MEDS ORDERED: DIPHENHYDRAMINE HCL 50 MG/ML VIAL IV ONE (08:10)
[2018-12-08] MEDS ORDERED: PROCHLORPERAZINE EDISYLATE INJ 10 MG/2 ML VIAL IV ONE (08:10)
[2018-12-08 09:34] LABS: ABSOLUTE EOSINOPHILS # (AUTO) 0.1 10^3/uL (0.0-0.6); ABSOLUTE LYMPHOCYTES (AUTO) 2.4 10^3/uL (0.5-4.7); ABSOLUTE MONOCYTES (AUTO) 0.5 10^3/uL (0.1-1.4); ABSOLUTE NEUT (AUTO) 4.7 10^3/uL (1.7-8.2); BASOPHILS % (AUTO) 0.4 % (0-2); EOSINOPHILS % (AUTO) 1.8 % (0-6); HEMATOCRIT 38.7 % (36.0-47.0); HEMOGLOBIN 13.1 g/dL (12.0-15.5); LYMPHOCYTES % (AUTO) 30.9 % (13-45); MEAN CORPUSCULAR HEMOGLOBIN 27.7 pg (27.0-33.4); MEAN CORPUSCULAR HGB CONC 33.8 g/dL (32.0-36.0); MEAN CORPUSCULAR VOLUME 82 fl (80-97); MONOCYTES % (AUTO) 6.2 % (3-13); PLATELET COUNT 267 10^3/uL (150-450); RED BLOOD COUNT 4.71 10^6/uL (3.72-5.28); RED CELL DISTRIBUTION WIDTH 14.8 % (11.5-14.0); SEGMENTED NEUTROPHILS % (AUTO) 60.7 % (42-78); TOTAL CELLS COUNTED % (AUTO) 100 %; WHITE BLOOD COUNT 7.7 10^3/uL (4.0-10.5)
[2018-12-08 09:48] LABS: ALANINE AMINOTRANSFERASE 63 U/L (9-52); ALBUMIN 4.2 g/dL (3.5-5.0); ALKALINE PHOSPHATASE 122 U/L (38-126); ANION GAP 9 (5-19); ASPARTATE AMINO TRANSFERASE 44 U/L (14-36); BILIRUBIN,DIRECT 0.2 mg/dL (0.0-0.4); BILIRUBIN,TOTAL 0.3 mg/dL (0.2-1.3); BLOOD UREA NITROGEN 14 mg/dL (7-20); CALCIUM 9.5 mg/dL (8.4-10.2); CARBON DIOXIDE 28 mmol/L (22-30); CHLORIDE 104 mmol/L (98-107); GLUCOSE 124 mg/dL (75-110); POTASSIUM 4.7 mmol/L (3.6-5.0); SODIUM 140.8 mmol/L (137-145)
[2018-12-08 09:59] VITALS: BP 119/62
--- NOTE | 2018-12-08 10:00 | ER Document Report ---
Entered by IDALIA FRIED SCRIBE 12/08/18 0839 Acting as scribe for:EMELI JUAREZ MD ED Headache - General Chief Complaint: migrane Stated Complaint: HEADACHE Time Seen by Provider: 12/08/18 07:57 Mode of Arrival: Ambulatory Information source: Patient Notes: 23-year-old female who presents to the emergency department today with complaints of a migraine headache. Patient states her headache began around 1800 yesterday. Patient describes the pain from her headache as a throbbing that is centrally located over her forehead. Patient states this headache is typical for her migraines although this one is "pretty severe". TRAVEL OUTSIDE OF THE [place] IN LAST 30 DAYS: No - Related Data Allergies/Adverse Reactions: No Known Allergies Allergy (Verified 04/17/18 17:01) Past Medical History - General Information source: Patient - Social History Smoking Status: Never Smoker Cigarette use (# per day): No Frequency of alcohol use: None Drug Abuse: None Lives with: Family Family History: Reviewed & Not Pertinent Neurological Medical History: Reports: Hx Migraine, Hx Seizures Psychiatric Medical History: Reports: Hx Anxiety Past Surgical History: Reports: Hx Cholecystectomy Review of Systems - Review of Systems Constitutional: No symptoms reported EENT: No symptoms reported Cardiovascular: No symptoms reported Respiratory: No symptoms reported Gastrointestinal: See HPI, Vomiting Genitourinary: No symptoms reported Female Genitourinary: No symptoms reported Musculoskeletal: No symptoms reported Skin: No symptoms reported Hematologic/Lymphatic: No symptoms reported Neurological/Psychological: See HPI, Headaches -: Yes All other systems reviewed and negative Physical Exam - Vital signs Vitals: Temp Pulse Resp BP Pulse Ox 97.7 F 68 16 134/86 H 99 12/08/18 04:00 12/08/18 04:00 12/08/18 04:00 12/08/18 04:00 12/08/18 04:00 - Notes Notes: Physical Exam: General: Alert, appears well. HEENT: Normocephalic. Atraumatic. PERRL. Extraocular movements intact. Oropharynx clear. Temporal musculature tenderness with palpation. Forehead musculature tenderness with palpation. Maxillary sinus tenderness to percussion bilaterally. Neck: Supple. Posterior cervical musculature tenderness with palpation right > left. Respiratory: No respiratory distress. Clear and equal breath sounds bilaterally. Cardiovascular: Regular rate and rhythm. Abdominal: Obese. Non-tender. No distension. Normal Bowel Sounds. Back: Non-tender. No deformity or step off. Extremities: Moves all four extremities. Upper extremities: Normal inspection. Normal ROM. Lower extremities: Normal inspection. No edema. Normal ROM. Neurological: Normal cognition. AAOx4. Normal speech. Psychological: Normal affect. Normal Mood. Skin: Warm. Dry. Normal color. Course - Re-evaluation Re-evalutation: 12/08/18 10:22 Patient reports her headache is much better, she feels comfortable going home and trying to sleep. - Vital Signs Vital signs: Temp Pulse Resp BP Pulse Ox 97.9 F 72 16 119/62 98 12/08/18 09:57 12/08/18 09:57 12/08/18 09:57 12/08/18 09:57 12/08/18 09:57 - Laboratory Result Diagrams: 12/08/18 09:10 12/08/18 09:10 Laboratory results interpreted by me: 12/08/18 12/08/18 09:10 09:10 RDW 14.8 H Creatinine 0.50 L Glucose 124 H AST 44 H ALT 63 H Discharge - Discharge Clinical Impression: Headache Qualifiers: Headache type: tension-type Headache chronicity pattern: acute headache Intractability: not intractable Qualified Code(s): G44.209 - Tension-type headache, unspecified, not intractable Condition: Stable Disposition: HOME, SELF-CARE Additional Instructions: Headache The physician does not feel that the headache you are experiencing has a serious underlying cause. Most headaches are due to emotional stress, with resultant muscle tension (tension headache). Occasionally, headaches are secondary to changes in the blood vessels of the scalp (vascular headache and migraine headache). Sometimes, a headache is the first symptom of another developing illness, such as a viral infection. You have no evidence of stroke, bleeding, meningitis, or other serious cause of your headache. The treatment of headaches varies with the severity and cause of the pain. Not all headaches need pain shots. In fact, there is evidence that using narcotics for headaches may make them worse in the long run. The physician will determine the therapy that's in your best interest. If you develop a fever, if the headache is different from any you've previously experienced, or if the headache progressively worsens, then call your physician at once or go to the emergency room. Rest and sleep today in a cool quiet dark room. Take Tylenol for your headache as needed. Follow-up with your primary care provider this week if not improving. RETURN TO THE EMERGENCY ROOM IF ANY NEW OR WORSENING SYMPTOMS. Scribe Attestation: 12/08/18 08:58 I personally performed the services described in the documentation, reviewed and edited the documentation which was dictated to the scribe in my presence, and it accurately records my words and actions. I personally performed the services described in the documentation, reviewed and edited the documentation which was dictated to the scribe in my presence, and it accurately records my words and actions.
== END 2018-12-08 10:52 | disposition home or self-care (01) ==
LOC: ER 03:00
DX: G44.209 Tension-type headache, unspecified, not intractable (principal)
CPT/HCPCS: 99284; 96361; 96374; 96375; 36415; 84703; 85025; 80053; J1200; J0780; J2405; J7030

== ENCOUNTER 2019-01-11 23:02 | Emergency (ER) | payer OTHER ==
[2019-01-11] MEDS ORDERED: NORMAL SALINE 1000 ML 1,000 ML IV ONE (23:44)
[2019-01-11] MEDS ORDERED: METOCLOPRAMIDE HCL INJ/PF 10 MG/2 ML SDV IV ONE (23:53)
[2019-01-12 00:29] LABS: ABSOLUTE EOSINOPHILS # (AUTO) 0.1 10^3/uL (0.0-0.6); ABSOLUTE LYMPHOCYTES (AUTO) 2.7 10^3/uL (0.5-4.7); ABSOLUTE MONOCYTES (AUTO) 0.6 10^3/uL (0.1-1.4); HEMOGLOBIN 12.4 g/dL (12.0-15.5); TOTAL CELLS COUNTED % (AUTO) 100 %
[2019-01-12 00:38] LABS: ABSOLUTE NEUT (AUTO) 5.5 10^3/uL (1.7-8.2); BASOPHILS % (AUTO) 0.1 % (0-2); LYMPHOCYTES % (AUTO) 30.1 % (13-45); MEAN CORPUSCULAR HGB CONC 34.5 g/dL (32.0-36.0); MEAN CORPUSCULAR VOLUME 84 fl (80-97); MONOCYTES % (AUTO) 6.5 % (3-13); PLATELET COUNT 246 10^3/uL (150-450); RED BLOOD COUNT 4.28 10^6/uL (3.72-5.28); RED CELL DISTRIBUTION WIDTH 14.3 % (11.5-14.0); SEGMENTED NEUTROPHILS % (AUTO) 62.3 % (42-78); WHITE BLOOD COUNT 8.8 10^3/uL (4.0-10.5)
[2019-01-12 00:40] LABS: APPEARANCE,URINE SLIGHTLY-CLOUDY; BILIRUBIN,URINE NEGATIVE (NEGATIVE); COLOR,URINE YELLOW; GLUCOSE, URINE NEGATIVE (NEGATIVE); KETONES,URINE NEGATIVE (NEGATIVE); LEUKOCYTE ESTERASE,URINE SMALL (NEGATIVE); NITRITE,URINE NEGATIVE (NEGATIVE); PROTEIN,URINE NEGATIVE (NEGATIVE); URINE SPECIFIC GRAVITY 1.029; UROBILINOGEN,URINE NEGATIVE mg/dL (<2.0)
[2019-01-12 00:49] LABS: ALKALINE PHOSPHATASE 119 U/L (38-126); ANION GAP 8 (5-19); ASPARTATE AMINO TRANSFERASE 47 U/L (14-36); BILIRUBIN,DIRECT 0.2 mg/dL (0.0-0.4); BILIRUBIN,TOTAL 0.2 mg/dL (0.2-1.3); BLOOD UREA NITROGEN 12 mg/dL (7-20); CALCIUM 9.4 mg/dL (8.4-10.2); CARBON DIOXIDE 25 mmol/L (22-30); CHLORIDE 105 mmol/L (98-107); GLUCOSE 106 mg/dL (75-110); POTASSIUM 4.5 mmol/L (3.6-5.0); TOTAL PROTEIN 6.7 g/dL (6.3-8.2)
--- NOTE | 2019-01-12 00:59 | RADIOLOGY REPORT (SQ) ---
EXAM DESCRIPTION: US ABDOMEN LIMITED COMPLETED DATE/TME: 01/11/2019 23:53 CLINICAL HISTORY: 23 years, Female, RUQ pain COMPARISON: None. TECHNIQUE: Limited right upper quadrant ultrasound LIMITATIONS: None. FINDINGS: Echogenic appearance to the liver consistent with fatty infiltrative change. Status post cholecystectomy. The CBD measures 2.7 mm. Pancreas not well seen due to bowel gas. The abdominal aorta and inferior vena cava are unremarkable. The right kidney is unremarkable. No ascites IMPRESSION: Fatty infiltrative change to the liver copyright 2010 [employer]- All Rights Reserved
--- NOTE | 2019-01-12 01:18 | ER Document Report ---
ED General - General Chief Complaint: Abdominal Pain Stated Complaint: ABDOMINAL PAIN Time Seen by Provider: 01/11/19 23:42 Primary Care Provider: OFELIA ROMEO MD [Primary Care Provider] - Follow up as needed Notes: Patient is a 23-year-old female presents to the emergency department for epigastric abdominal pain, nausea and vomiting. Patient is also complaining of generalized dysuria. States she is took at home tests that were positive. States she did go to her primary care provider 2 days ago for blood tests but that have not resulted yet. States her last menstrual cycle was the end of October. States she has had epigastric abdominal pain for the last 2 days. States she did vomit once today but is more so nauseated. Patient is also complaining of one episode of diarrhea, denies any blood. Patient is denying any vaginal discharge. Patient has a history of a cholecystectomy in 2016. Past medical history: Seizures Medications: Carbamazepine Allergies: Motrin TRAVEL OUTSIDE OF THE [place] IN LAST 30 DAYS: No - Related Data Allergies/Adverse Reactions: ibuprofen [From Motrin] Allergy (Verified 01/11/19 23:39) Past Medical History - General Information source: Patient - Social History Smoking Status: Never Smoker Family History: Reviewed & Not Pertinent Patient has suicidal ideation: No Patient has homicidal ideation: No Neurological Medical History: Reports: Hx Migraine, Hx Seizures - epilepsy Renal/ Medical History: Denies: Hx Peritoneal Dialysis Psychiatric Medical History: Reports: Hx Anxiety Past Surgical History: Reports: Hx Cholecystectomy Review of Systems - Review of Systems Constitutional: denies: Fever EENT: No symptoms reported Cardiovascular: No symptoms reported Respiratory: No symptoms reported Gastrointestinal: See HPI Genitourinary: See HPI Female Genitourinary: See HPI Musculoskeletal: No symptoms reported Skin: No symptoms reported Hematologic/Lymphatic: No symptoms reported Neurological/Psychological: No symptoms reported Physical Exam - Vital signs Vitals: Temp Pulse Resp BP Pulse Ox 98.1 F 84 20 121/68 98 01/11/19 23:41 01/11/19 23:41 01/11/19 23:41 01/11/19 23:41 01/11/19 23:41 - Notes Notes: GENERAL: Alert, interacts well. No acute distress. HEAD: Normocephalic, atraumatic. EYES: Pupils equal, round, and reactive to light. Extraocular movements intact. ENT: Oral mucosa moist, tongue midline. NECK: Full range of motion. Supple. Trachea midline. LUNGS: Clear to auscultation bilaterally, no wheezes, rales, or rhonchi. No respiratory distress. HEART: Regular rate and rhythm. No murmur ABDOMEN: Obese, soft, generalized right upper quadrant, epigastric, left upper quadrant tenderness noted. Non-distended. Bowel sounds present in all 4 quadrants. No McBurney's point tenderness noted. EXTREMITIES: Moves all 4 extremities spontaneously. No edema, normal radial and dorsalis pedis pulses bilaterally. No cyanosis. BACK: no cervical, thoracic, lumbar midline tenderness. No saddle anesthesia, normal distal neurovascular exam. No CVA tenderness noted. NEUROLOGICAL: Alert and oriented x3. Normal speech. cranial nerves II through XII grossly intact PSYCH: Normal affect, normal mood. SKIN: Warm, dry, normal turgor. No rashes or lesions noted. Course - Re-evaluation Re-evalutation: 01/12/19 01:17 Laboratory 01/12/19 01/12/19 01/12/19 00:10 00:10 00:10 WBC 8.8 RBC 4.28 Hgb 12.4 Hct 36.0 MCV 84 MCH 29.0 MCHC 34.5 RDW 14.3 H Plt Count 246 Seg Neutrophils % 62.3 Lymphocytes % 30.1 Monocytes % 6.5 Eosinophils % 1.0 Basophils % 0.1 Absolute Neutrophils 5.5 Absolute Lymphocytes 2.7 Absolute Monocytes 0.6 Absolute Eosinophils 0.1 Absolute Basophils 0.0 Sodium 138.4 Potassium 4.5 Chloride 105 Carbon Dioxide 25 Anion Gap 8 BUN 12 Creatinine 0.57 Est GFR ( Amer) > 60 Est GFR (Non-Af Amer) > 60 Glucose 106 Calcium 9.4 Total Bilirubin 0.2 Direct Bilirubin 0.2 Neonat Total Bilirubin Not Reportable Neonat Direct Bilirubin Not Reportable Neonat Indirect Bili Not Reportable AST 47 H ALT 50 Alkaline Phosphatase 119 Total Protein 6.7 Albumin 4.0 Lipase 50.9 Urine Color YELLOW Urine Appearance SLIGHTLY-CLOUDY Urine pH 6.0 Ur Specific [place] 1.029 Urine Protein NEGATIVE Urine Glucose (UA) NEGATIVE Urine Ketones NEGATIVE Urine Blood NEGATIVE Urine Nitrite NEGATIVE Urine Bilirubin NEGATIVE Urine Urobilinogen NEGATIVE Ur Leukocyte Esterase SMALL H Urine WBC (Auto) 9 Urine RBC (Auto) 1 Urine Bacteria (Auto) TRACE Squamous Epi Cells Auto 4 Urine Mucus (Auto) RARE Urine Ascorbic Acid NEGATIVE Urine HCG, Qual POSITIVE H Abdomen Ultrasound 01/11/19 23:53 IMPRESSION: Fatty infiltrative change to the liver copyright 2010 [employer]- All Rights Reserved Upon reevaluation of the patient she no longer complains of any epigastric abdominal pain. States she feels a lot better after fluid in the emergency department and Reglan. Patient's denying any right upper quadrant or left upper quadrant pain at this time. Repeat physical exam continues to reveal no pain. Patient's urine does show signs of infection, will treat with Keflex and antiemetics. Discussed close follow-up with primary care provider and MARKETING SERVICES COORDINATOR. At this time will discharge with return precautions and follow-up recommendations. Verbal discharge instructions given a the bedside and opport unity for questions given. Medication warnings reviewed. Patient is in agreement with this plan and has verbalized understanding of return precautions and the need for primary care follow-up in the next 24-72 hours. This medical record was dictated with voice recognizing software. There may be grammatical, syntax errors that are unintended. - Vital Signs Vital signs: Temp Pulse Resp BP Pulse Ox 98.1 F 84 20 121/68 98 01/11/19 23:41 01/11/19 23:41 01/11/19 23:41 01/11/19 23:41 01/11/19 23:41 - Laboratory Result Diagrams: 01/12/19 00:10 01/12/19 00:10 Laboratory results interpreted by me: 01/12/19 01/12/19 01/12/19 00:10 00:10 00:10 RDW 14.3 H AST 47 H Ur Leukocyte Esterase SMALL H Urine HCG, Qual POSITIVE H Discharge - Discharge Clinical Impression: Urinary tract infection affecting , Epigastric abdominal pain Nausea & vomiting Qualifiers: Vomiting type: unspecified Vomiting Intractability: non-intractable Qualified Code(s): R11.2 - Nausea with vomiting, unspecified Condition: Stable Disposition: HOME, SELF-CARE Instructions: Intravenous (IV) Fluids ([facility]), Urinary Tract Infection ([facility]), Cephalexin ([facility]), Vomiting ([facility]) Additional Instructions: As we discussed you have been seen and treated in the emergency department for epigastric abdominal pain, nausea and vomiting, and urinary tract infection. Please make sure taking antibiotics as prescribed. Please use antinausea medication only as needed. Please follow-up with your primary care provider or MARKETING SERVICES COORDINATOR in the next 24 to 48 hours. Please return to the emergency room for any further concerns. Prescriptions: Cephalexin Monohydrate [Keflex 500 mg Capsule] 500 mg PO BID 7 Days #14 capsule Metoclopramide HCl [Reglan 10 mg Tablet] 10 mg PO Q6 PRN #8 tablet PRN Reason: Forms: Return to Work Referrals: OFELIA ROMEO MD [Primary Care Provider] - Follow up as needed
[2019-01-12] MEDS ORDERED: CEPHALEXIN 500 MG CAPSULE PO ONE (01:23)
[2019-01-12 01:44] VITALS: BP 129/66
== END 2019-01-12 01:45 | disposition home or self-care (01) ==
LOC: ER 23:02
DX: O23.41 Unspecified infection of urinary tract in pregnancy, first trimester (principal); R10.13 Epigastric pain; R11.2 Nausea with vomiting, unspecified; R30.0 Dysuria; Z88.6 Allergy status to analgesic agent; Z90.49 Acquired absence of other specified parts of digestive tract
CPT/HCPCS: 36415; 87086; 83690; 85025; 81025; 80053; 81001; 76705; J2765; J7030; 96361; 96374; 99284

== ENCOUNTER 2019-02-25 10:28 | Emergency (ER) | payer OTHER ==
[2019-02-25 11:39] LABS: ABSOLUTE EOSINOPHILS # (AUTO) 0.1 10^3/uL (0.0-0.6); ABSOLUTE LYMPHOCYTES (AUTO) 1.7 10^3/uL (0.5-4.7); ABSOLUTE MONOCYTES (AUTO) 0.4 10^3/uL (0.1-1.4); ABSOLUTE NEUT (AUTO) 5.2 10^3/uL (1.7-8.2); BASOPHILS % (AUTO) 0.3 % (0-2); EOSINOPHILS % (AUTO) 0.8 % (0-6); HEMATOCRIT 35.8 % (36.0-47.0); HEMOGLOBIN 12.4 g/dL (12.0-15.5); LYMPHOCYTES % (AUTO) 23.3 % (13-45); MEAN CORPUSCULAR HEMOGLOBIN 29.5 pg (27.0-33.4); MEAN CORPUSCULAR HGB CONC 34.8 g/dL (32.0-36.0); MEAN CORPUSCULAR VOLUME 85 fl (80-97); MONOCYTES % (AUTO) 5.1 % (3-13); PLATELET COUNT 244 10^3/uL (150-450); RED BLOOD COUNT 4.22 10^6/uL (3.72-5.28); RED CELL DISTRIBUTION WIDTH 13.3 % (11.5-14.0); SEGMENTED NEUTROPHILS % (AUTO) 70.5 % (42-78); TOTAL CELLS COUNTED % (AUTO) 100 %; WHITE BLOOD COUNT 7.3 10^3/uL (4.0-10.5)
[2019-02-25 11:56] LABS: ALBUMIN 3.6 g/dL (3.5-5.0); ALKALINE PHOSPHATASE 97 U/L (38-126); ANION GAP 9 (5-19); ASPARTATE AMINO TRANSFERASE 29 U/L (14-36); BILIRUBIN,DIRECT 0.1 mg/dL (0.0-0.4); BILIRUBIN,TOTAL 0.3 mg/dL (0.2-1.3); BLOOD UREA NITROGEN 4 mg/dL (7-20); CALCIUM 9.6 mg/dL (8.4-10.2); CARBON DIOXIDE 23 mmol/L (22-30); CHLORIDE 106 mmol/L (98-107); GLUCOSE 116 mg/dL (75-110); POTASSIUM 4.3 mmol/L (3.6-5.0); TOTAL PROTEIN 6.5 g/dL (6.3-8.2)
[2019-02-25 11:59] LABS: ALCOHOL < 10 mg/dL (NONE DETECTED)
[2019-02-25] MEDS ORDERED: LEVETIRACETAM 1500 MG/NACL-ISO 1,500 MG/100 ML RTUPB IV ONE (12:02)
[2019-02-25] MEDS ORDERED: NORMAL SALINE 1000 ML 1,000 ML IV ONE (12:02)
[2019-02-25] MEDS ORDERED: PROCHLORPERAZINE EDISYLATE INJ 10 MG/2 ML VIAL IV ONE (12:03)
--- NOTE | 2019-02-25 12:07 | ER Document Report ---
ED Seizure - General Chief Complaint: Probable Seizure Stated Complaint: DIZZINESS Time Seen by Provider: 02/25/19 11:56 Mode of Arrival: Ambulatory Information source: Patient Notes: History of Present Illness Chief Complaint: Seizure 23 years old female who is 12 weeks , this is G2, P1. Also has a history of seizure disorder taking Keppra 500 mg twice a day, she is still taking after being . Presents today with a sensation of aura, described as nauseous feeling of flushing sensation as well as spinning sensation. She usually gets these signs before having a grand mal seizure. Therefore she came to the ED to prevent. Denies any fever chills or other constitutional symptoms. History obtained from patient Symptoms began: Today Onset: Abrupt Timing: Lasted minutes, now recovered There was a postictal period, now improved Context: X Patient lost consciousness and exhibited shaking movements Preceding symptoms: None Patient has a history of seizure disorder Compliant with seizure medicine Denies alcohol withdrawal Denies recent illness Aggravating factors: None Relieving factors: None Denies injury/trauma Did not have head injury Denies neck pain Denies incontinence Denies tongue biting Denies focal weakness, numbness, aphasia, visual loss Did not stop breathing or lose pulse Review of systems: All other systems negative as reviewed. CONSTITUTIONAL No fever. EYES No eye pain. ENT No URI symptoms, No sore throat, No ear pain. CARDIOVASCULAR No chest pain, No palpitations, No edema. RESPIRATORY No Cough, No SOB, No wheezing. GASTROINTESTINAL No abdominal pain, No nausea, No vomiting, No diarrhea, No constipation, No melena, No rectal bleeding. GENITOURINARY No UTI symptoms. MUSCULOSKELETAL No back pain. SKIN No Rash. NEUROLOGIC ENDOCRINE No polyuria. HEMO/LYMPATIC Patient does not bruise easily. PSYCHIATRIC No depression. Physical Exam CONSTITUTIONAL Vital signs reviewed, UNComfortable, Alert and oriented X 3. Morbid obesity HEAD Atraumatic, Normal cephalic. EYES No discharge from eye, Sclera are not injected, Extraocular muscles intact, Conjunctiva are normal.perrl,2mm, no photophobia, no nystagmus, fundi wnl. ENT Ears normal to inspection, Nose examination normal, Oropharynx normal, Mucous membranes pink, moist, normal in color. NECK Normal inspection, supple, Normal ROM, No jugular venous distention, No meningeal signs, no carotid bruit or tenderness. RESPIRATORY/CHEST Chest is non-tender, Breath sounds normal, No respiratory distress. CARDIOVASCULAR RRR, Heart sounds normal. ABDOMEN Abdomen is non-tender, No masses, Bowel sounds normal, No distension, No peritoneal signs. NEURO Alert oriented x3 nonfocal SKIN Skin is warm and dry, No rash. LYMPHATIC No adenopathy in neck. PSYCHIATRIC Normal affect. - HPI Notes: Dictated - Related Data Allergies/Adverse Reactions: ibuprofen [From Motrin] Allergy (Verified 01/11/19 23:39) Past Medical History - Social History Smoking Status: Never Smoker Chew tobacco use (# tins/day): No Frequency of alcohol use: None Drug Abuse: None Lives with: Family Family History: Reviewed & Not Pertinent Patient has suicidal ideation: No Patient has homicidal ideation: No Neurological Medical History: Reports: Hx Migraine, Hx Seizures Renal/ Medical History: Denies: Hx Peritoneal Dialysis Psychiatric Medical History: Reports: Hx Anxiety Past Surgical History: Reports: Hx Cholecystectomy Review of Systems - Review of Systems Notes: Dictated Physical Exam - Vital signs Vitals: Temp Resp BP Pulse Ox 97.6 F 18 127/62 H 96 02/25/19 11:00 02/25/19 11:00 02/25/19 11:00 02/25/19 11:00 - Notes Notes: Dictated Course - Re-evaluation Re-evalutation: 02/25/19 12:06 Given Keppra IV 02/25/19 13:34 IV Keppra was completed, patient did not have any seizures symptoms improved - Vital Signs Vital signs: Temp Pulse Resp BP Pulse Ox 98.3 F 20 130/54 H 96 02/25/19 12:27 02/25/19 12:01 02/25/19 12:01 02/25/19 12:01 - Laboratory Result Diagrams: 02/25/19 11:30 02/25/19 11:30 Laboratory results interpreted by me: 02/25/19 02/25/19 11:30 11:30 Hct 35.8 L BUN 4 L Creatinine 0.41 L Glucose 116 H Discharge - Discharge Clinical Impression: Seizure disorder Condition: Fair Disposition: HOME, SELF-CARE Instructions: Seizure, Known Epileptic ([facility])
[2019-02-25 13:41] VITALS: BP 110/65
== END 2019-02-25 13:40 | disposition home or self-care (01) ==
LOC: ER 10:28
DX: O99.351 Diseases of the nervous system complicating pregnancy, first trimester (principal); G40.909 Epilepsy, unspecified, not intractable, without status epilepticus; Z79.899 Other long term (current) drug therapy; O99.211 Obesity complicating pregnancy, first trimester; E66.01 Morbid (severe) obesity due to excess calories; Z3A.12 12 weeks gestation of pregnancy; O26.891 Other specified pregnancy related conditions, first trimester; Z88.8 Allergy status to other drugs, medicaments and biological substances
CPT/HCPCS: 99284; 96361; 96374; 96375; 36415; 80307; 83735; 85025; 80053; J0780; J7030; J1953